=== PATIENT | male | born 1965 | race African-American/Black ===

== ENCOUNTER → 2021-07-15 | Outpatient (CLI) | payer MEDICARE, BC ==
--- NOTE | 2021-07-15 17:26 | RAD ---
XR CHEST 2V History: Reason: COUGH / Comparison: None. Findings: The cardiomediastinal silhouette is normal. There is patchy right perihilar airspace opacity with pos sible associated peribronchial thickening. No pleural effusion or pneumothorax is seen. There is no a cute bone abnormality. There is moderate degenerative endplate spurring of the thoracic spine. IMPRESSION: Right perihilar airspace opacity may be pneumonia including atypical pneumonia or atelectasis. Electronically signed by: Du Serra MD (07/15/2021 5:23 PM) [facility]
== END ==
LOC: PMG 16:50
PROVIDERS: ATTEND Family Medicine
DX: J84.89 Other specified interstitial pulmonary diseases (principal); R05.9 Cough, unspecified; M46.04 Spinal enthesopathy, thoracic region
CPT/HCPCS: 71046